=== PATIENT | female | born 1985 | race Native Hawaiian/Other Pacific Islander ===

== ENCOUNTER 2019-01-02 12:09 | Outpatient (CLI) | payer BC ==
[2019-01-02 13:31] LABS: POTASSIUM 4.1 mmol/L (3.6-5.2)
== END 2019-01-02 23:33 | disposition home or self-care (01) ==
LOC: LABW 12:09
PROVIDERS: Surgery
DX: R10.9 Unspecified abdominal pain (principal); E66.01 Morbid (severe) obesity due to excess calories
CPT/HCPCS: 36415; 80053; 80061; 82248; 82306; 82607; 82728; 82746; 82747; 82977; 83540; 83550; 83615; 83735; 83970; 84100; 84134; 84439; 84443; 84446; 84481; 84590; 84597; 84630

== ENCOUNTER 2019-04-09 12:48 | Outpatient (CLI) | payer BC | END 2019-04-09 19:35 | disposition home or self-care (01) | LOC: RESP 12:48 | DX: Z01.818 Encounter for other preprocedural examination (principal) | CPT/HCPCS: 93306 ==